=== PATIENT | female | born 1930 | race African-American/Black ===

== ENCOUNTER → 2017-01-08 | Outpatient (CLI) | payer OTHER ==
[~2017-01-08] MED LIST: ATENOLOL; ATENOLOL PO; BACTRIM DS TABL1 TAB PO; CALTRATE 600+D PO; CALTRATE PLUS T1 TAB; CARDURA PO; CARDURA8 MG PO; CENTRUM SILVER PO; CITRACAL200 MG; CO Q-1050 MG PO; COENZYME Q1050 M1 PO; DARVOCET-N 1001 TAB PO; FOSAMAX PO; GLUCOSAMIN-CHO1 EACH PO; GLUCOSAMINE CHON; GLUCOSAMINE PO; GLUCOSAMINE/CHONDROI PO; HYDROCODON-ACE1 EAC7 PO; IBUPROFEN PO; IBUPROFEN800 MG PO; KCL PO; LASIX PO; LEVAQUIN PO; LIPITOR PO; LISINOPRIL20 MG PO; NORVASC; PRAVASTATIN SOD20 MG PO; PRINIVIL20 M1 PO; PROTONIX PO; SYNTHROID PO; SYNTHROID25 MCG PO; TRAMADOL HCL50 M2 PO; TYLENOL #3 PO; VICODIN 5/500 T1 TAB PO; ZITHROMAX PO; [UNRECOGNIZED DRUG - REMARK]
--- NOTE | ~2017-01-08 | MR32 ---
[facility] A Service of [facility] & [facility] RADIOLOGY TEXT RESULTS PATIENT: KASSIDY MCCALL LOCATION: [facility] : 32 UNIT #: [id number] AGE: [address]: Ridge Donahue MD SEX: F ORDER DR: [id number] [facility] [address] [place], [place] [address] [id number] O MR#: [id number] Acc #: [id number] NAME: KASSIDY MCCALL : 1930 SEX: F STUDY DATE/TIME: 01/08/2017 10:09 UNIT: [facility] ROOM: STUDY DESCRIPTION: MR Cervical Wo Contrast Attending Physician: Ridge Donahue M.D. Referring Physician: Ridge Donahue M.D. Ordering Physician: Ridge Donahue M.D. Primary Care Physician: Ridge Donahue M.D. MRI CENTER REPORT This report is preliminary unless electronic signature is present. EXAM Cervical MRI HISTORY Neck pain for the past 2 weeks that is nonradiating. No recent trauma. TECHNIQUE Multiplanar imaging of the cervical spine was performed with short and long TR. FINDINGS Degenerative changes are seen throughout the cervical spine. At C2-3, there is a small midline disc osteophyte complex with wide patency of the canal and foramina. At C3-4, there is severe central stenosis secondary to a broad-based posterior disc osteophyte complex. This extends more to the left than to the right and there is also a mild left-sided facet hypertrophy. The AP diameter of the spinal canal at this level measures 6 mm. There is abnormal increased T2 signal in the cord at C3-4 extending down below the disc to the C4 vertebral body level. This likely reflects chronic myelomalacia from chronic cord compression. The possibility of an acute superimposed cord infarct cannot be excluded. At C4-5, there is moderate central stenosis from posterior disc bulging and osteophyte formation. There is bilateral facet disease, right greater than left, with moderate bilateral foraminal stenosis. At C5-6, the disc is collapsed and there is a broad-based posterior disc osteophyte complex extending to both uncovertebral joints with moderate central stenosis worse toward the right side and moderately-severe bilateral foraminal stenosis. [facility]. [facility] A Service of [facility] RADIOLOGY TEXT RESULTS PATIENT: KASSIDY MCCALL LOCATION: [facility] : 32 UNIT #: [id number] AGE: [address]: Ridge Donahue MD SEX: F ORDER DR: At C6-7, the disc is collapsed and there is broad-based posterior disc bulging and osteophyte formation with moderate central stenosis and mild bilateral foraminal stenosis. At C7-T1, there is a small midline disc osteophyte complex with mild canal narrowing and no significant foraminal narrowing. No discrete cervical disc herniation is seen. There is no evidence of a cervical fracture either acutely or chronically. IMPRESSION 1. Multilevel degenerative disc and facet disease as described above [id number]. There is severe central stenosis at C3-4 from disc and facet disease and there is increased T2 signal at the cervical cord at C4 and to a lesser extent at C5 likely representing chronic myelomalacia from cord compression. A superimposed acute cord infarct cannot be excluded but there is no evidence of swelling of the cord. Dictated by... Shayne Rodriguez M.D. THIS IS AN ELECTRONICALLY VERIFIED REPORT Shayne Rodriguez M.D. at 01/09/2017 3:52 PM JI/avelina TD: 01/09/2017 10:08 JOB #: [id number] MRI CENTER REPORT Page 1 of 1 COPY
== END | disposition home or self-care (01) ==
LOC: CMRI 09:24
DX: M48.02 Spinal stenosis, cervical region (principal); M50.821 Other cervical disc disorders at C4-C5 level; M50.823 Other cervical disc disorders at C6-C7 level; M25.78 Osteophyte, vertebrae
CPT/HCPCS: 72141

== ENCOUNTER → 2017-01-29 | Outpatient (CLI) | payer OTHER ==
--- NOTE | ~2017-01-29 | MY29 ---
[facility] A Service of [facility] RADIOLOGY TEXT RESULTS PATIENT: KASSIDY MCCALL LOCATION: [facility] : 32 UNIT #: [id number] AGE: [address]: Ridge Donahue MD SEX: F ORDER DR: [id number] [facility] [address] [place], [place] [address] [id number] O MR#: [id number] Acc #: [id number] NAME: KASSIDY MCCALL : 1930 SEX: F STUDY DATE/TIME: 01/29/2017 11:15 UNIT: [facility] ROOM: STUDY DESCRIPTION: MY MICHAEL SCREENING W/ CAD BILAT Attending Physician: Ridge Donahue M.D. Referring Physician: Ridge Donahue M.D. Ordering Physician: Ridge Donahue M.D. Primary Care Physician: Ridge Donahue M.D. MEDICAL IMAGING REPORT This report is preliminary unless electronic signature is present EXAM Digital screening mammogram 01/29/2017 HISTORY 86-year-old woman. Positive family history, sisters. Annual screen. COMPARISON Mammograms date to 08/24/2006 with most recent to 01/29/2016. FINDINGS Digital imaging of each breast was completed utilizing screening protocol. Review includes FDA-approved CAD device. Breast parenchyma remains heterogeneously dense with scattered small nodular pattern and subareolar duct prominence. Occasional punctate calcification in each breast somewhat dominant on the left. I see no suspicious mass characteristics and no suspicious microcalcifications. There is no interval-occurring architectural disturbance. IMPRESSION Benign mammogram. Annual screening recommended. Patient's over the age of 40 are entered into a reminder system with target due date for the next mammogram. BIRADS: 2 Benign findings Dictated by... Luc Vergara M.D. THIS IS AN ELECTRONICALLY VERIFIED REPORT Luc Vergara M.D. at 01/29/2017 2:40 PM JBB/avelina [facility] A Service of [facility] RADIOLOGY TEXT RESULTS PATIENT: KASSIDY MCCALL LOCATION: [facility] : 32 UNIT #: [id number] AGE: [address]: Ridge Donahue MD SEX: F ORDER DR: TD: 01/29/2017 13:20 JOB #: [id number] MEDICAL IMAGING REPORT Page 1 of 1 COPY
== END | disposition home or self-care (01) ==
LOC: CWCC 10:24
DX: Z12.31 Encounter for screening mammogram for malignant neoplasm of breast (principal); Z80.3 Family history of malignant neoplasm of breast
CPT/HCPCS: G0202

== ENCOUNTER → 2017-04-13 | Outpatient (CLI) | payer OTHER ==
--- NOTE | ~2017-04-13 | CR181 ---
[facility] A Service of [facility] & [facility] RADIOLOGY TEXT RESULTS PATIENT: KASSIDY MCCALL LOCATION: [facility] : 32 UNIT #: [id number] AGE: [address]: Bandar Nixon MD SEX: F ORDER DR: [id number] [facility] [address] [place], [place] [address] [id number] O MR#: [id number] [facility] #: [id number] NAME: KASSIDY MCCALL : 1930 SEX: F STUDY DATE/TIME: 04/13/2017 13:50 UNIT: [facility] ROOM: STUDY DESCRIPTION: CR Lumbar Spine 2 or 3 Views Attending Physician: Bandar Nixon M.D. Referring Physician: Bandar Nixon M.D. Ordering Physician: Bandar Nixon M.D. Primary Care Physician: Ridge Donahue M.D. MEDICAL IMAGING REPORT This report is preliminary unless electronic signature is present EXAM Three-view lumbar series, 04/13/2017. INDICATIONS 86-year-old female with low back pain, symptoms a year. No known injury. Spinal stenosis. TECHNIQUE Three views of the lumbar spine. Correlation made with MRI of 12/05/2015 FINDINGS The bones are osteoporotic. There is mild dextroscoliosis and atherosclerotic disease. Alignment is remarkable for retrograde listhesis of L5, grade 1 in degree with respect to L4 measuring about 7 mm. Vertebral body heights and alignment otherwise preserved. There is degenerative disc disease that is most severe at L5-S1 and also at L3-4 to a lesser extent and L1-2 and T12-L1. There is multilevel facet arthropathy from L3-4 through L5-S1, most severe at L5-S1. There is atherosclerotic change of the aorta. Degenerative changes also seen in the thoracic spine. IMPRESSION 1. Osteoporosis with multilevel degenerative changes related to facet arthropathy in the lower lumbar levels and multilevel degenerative disc disease. Findings are the worst at L5-S1. 2. 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 3. Atherosclerotic disease. 4. No distinct evidence of acute fracture. 1. Dictated by... Robby Mendieta M.D. [facility] A Service of [facility] RADIOLOGY TEXT RESULTS PATIENT: KASSIDY MCCALL LOCATION: [facility] #: [id number] : 32 UNIT #: [id number] AGE: [address]: Bandar Nixon MD SEX: F ORDER DR: THIS IS AN ELECTRONICALLY VERIFIED REPORT Robby Mendieta M.D. at 04/15/2017 3:28 PM MADELINE/mukesh TD: 04/14/2017 10:39 JOB #: [id number] MEDICAL IMAGING REPORT Page 1 of 1 COPY
== END | disposition home or self-care (01) ==
LOC: CRAD 13:23
DX: M54.5 Low back pain (principal); M81.0 Age-related osteoporosis without current pathological fracture; M51.36 Other intervertebral disc degeneration, lumbar region; M46.96 Unspecified inflammatory spondylopathy, lumbar region; M43.16 Spondylolisthesis, lumbar region; I70.90 Unspecified atherosclerosis; M47.896 Other spondylosis, lumbar region
CPT/HCPCS: 72100